=== PATIENT | male | born 1980 | race Two or more races ===

== ENCOUNTER 2016-09-10 12:52 | Emergency (ER) | payer OTHER ==
[~2016-09-10] VITALS: Ht 175.3 cm; Wt 63.5 kg
[2016-09-10 15:36] VITALS: BP 139/79
== END 2016-09-10 15:36 | disposition home or self-care (01) ==
LOC: ED 12:52
DX: S01.511A Laceration without foreign body of lip, initial encounter (principal); E11.9 Type 2 diabetes mellitus without complications; W54.0XXA Bitten by dog, initial encounter; Y93.89 Activity, other specified; Y92.89 Other specified places as the place of occurrence of the external cause; Y99.8 Other external cause status
CPT/HCPCS: 90715; J0690